=== PATIENT | female | born 2005 ===

== ENCOUNTER 2025-02-18 20:08 | Outpatient (CLI) | payer BC, SELFPAY | END 2025-02-18 20:09 | disposition home or self-care (01) | LOC: AMB 02-27 14:21 | PROVIDERS: Visit Provider Family Medicine | DX: O47.02 False labor before 37 completed weeks of gestation, second trimester (principal); Z3A.26 26 weeks gestation of pregnancy | CPT/HCPCS: A0425; A0429 ==

== ENCOUNTER 2025-02-18 20:39 | Outpatient (CLI) | payer BC, SELFPAY ==
[2025-02-18 20:46] VITALS: PULSE 86; O2SAT 98
[2025-02-18 20:51] VITALS: PULSE 72; O2SAT 99
[2025-02-18 20:54] VITALS: BP 119/67; PULSE 64
[2025-02-18 20:56] VITALS: PULSE 68; O2SAT 99
[2025-02-18] MEDS: LACTATED RINGERS 1000 ML 1,000 ML IV ×2 (21:13→22:15)
[2025-02-18 21:34] LABS: Amnisure Rom* Negative
[2025-02-18] MEDS: ACETAMINOPHEN 500 MG TABLET 1000 MG PO (21:37)
[2025-02-18 21:43] LABS: Fetal Fibronectin* Negative (Negative)
[2025-02-18 21:50] LABS: Appearance Urine Cloudy (Clear)
--- NOTE | 2025-02-18 21:51 | CRLHL7_ITS ---
For Patients: As a result of the Century Cures Act, medical imaging exams and procedure reports are released immediately into your electronic medical record. You may view this report before your referring provider. If you have questions, please contact your health care provider. Indication: Assess cervical length, pain Technique: Targeted sonographic evaluation of the cervix was performed via transvaginal sonography. Comparison: None. Findings/Impression : Gravid uterus. The cervix is closed measuring 3 cm with without fundal pressure and 2.7 cm with fundal pressure. No funneling identified. No placenta or vasa previa. Dictated by Satinder Morris MD @ 02/19/2025 12:00:17 AM (Electronically Signed)
[2025-02-18 22:01] LABS: Trichomonas No Trichomonas Seen (None Seen)
--- NOTE | 2025-02-18 22:06 | CRLHL7_ITS ---
For Patients: As a result of the Century Cures Act, medical imaging exams and procedure reports are released immediately into your electronic medical record. You may view this report before your referring provider. If you have questions, please contact your health care provider. INDICATION: Pain, evaluate kidneys. TECHNIQUE: Ultrasound renal and bladder complete. Hudson-scale and color Doppler sonographic images were acquired of the kidneys and urinary bladder. COMPARISON: None. FINDINGS: Right kidney: 11.3 x 6.6 x 6.1 cm. Left kidney: 10.3 x 5.1 x 5.1 cm. Moderate right-sided hydroureteronephrosis from the mid ureter proximally. Mild left-sided pelviectasis. No suspicious mass or stone bilaterally. Bladder: Normal in caliber and appearance. Color Doppler images demonstrate bilateral ureteral jets. Gravid uterus. IMPRESSION: 1. Moderate right-sided hydroureteronephrosis from the mid ureter proximally. 2. Mild left-sided pelviectasis. 3. Bilateral ureteral jets are visualized. Dictated by Satinder Morris MD @ 02/18/2025 11:57:52 PM (Electronically Signed)
[2025-02-18 22:25] LABS: Bacterial Vaginosis* Negative (Negative); Candida glab/krus NOT DETECTED (No Detected)
[2025-02-18 22:43] LABS: Cannabinoid Screen Urine Negative (Negative); Methamphetamines Screen Urine Negative (Negative); Tricyclic Antidepressant Urine Negative (Negative)
--- NOTE | 2025-02-18 23:41 | PC.NURSE ---
Verbal order from Alexey Andres MD: send to [facility] 5mg Oxycodone Q4-6 hours PRN pain. 20 tablets
--- NOTE | 2025-02-18 23:48 | PM.OBLDTN ---
OB - Triage/Final Diagnosis Visit Information Time Seen by Provider: 09:15 Date Seen: 02/18/25 Date of evaluation: 02/18/25 Narrative: Patient is a 19YO at 25w4d who presents to triage for evaluation of abdominal pain. Patient repots that pain started out of the blue around 5:30PM on 02/18/2025. She states that it is a constant stabbing pain that is primarily in her lower abdomen, but radiates around her abdomen and to her back, particularly on the right side. She reports that she was nauseated earlier today but this subsided. She denies dysuria, changes in frequency, urinary urgency. She denies gross hematuria. She reports that she has had increased vaginal discharge over the last few weeks, however testing at her primary OBs office was negative for vaginitis. She denies fevers, chills, diarrhea, and constipation. She cannot get comfortable in bed. She describes that this is similar to the pain that she had at the end of her last , but this is more severe. Pain is worsened by movement. She had not taken anything for pain control. This patient is new to me and does not have records in our health system. Some records were able to obtained and reviewed from [facility] - where she gets routine care. Her has been complicated by missed appointments, transportation insecurity, food insecurity, tension headaches, intermittent dizziness, chronic back pain, chronic knee pain, bipolar disorder (notes state history of manic episodes) on lamotrigine QD and seroquel 25-50mg PRN, h/o pre-eclampsia, short interval (last delivery 04/2024 vaginally, uncomplicated). Evaluation Cervical dilation (cm): 0 Cervical effacement (%): 0 Laboratory results: Laboratory Tests 02/18/25 02/18/25 02/18/25 Range/Units 21:45 21:35 21:20 Urine Color Yellow (Yellow) Urine Appearance Cloudy A (Clear) Urine pH 7.0 (5.0-8.5) Ur Specific [place] 1.025 (1.000-1.030) Urine Protein Negative (Negative) Urine Glucose (UA) Negative (Negative) Urine Ketones Negative (Negative) Urine Blood 2+ A (Negative) Urine Nitrite Negative (Negative) Urine Bilirubin Negative (Negative) Urine Urobilinogen 1.0 (0.2-1.0) Ur Leukocyte Esterase Negative (Negative) Urine RBC 2-5 A (0-2) Urine WBC 5-10 A (0-5) Ur Squamous Epith Cells Many A (None-Few) Amorphous Sediment Moderate A (None) Urine Bacteria Moderate A (None) Urine Mucus Few A (None) Membrane Rupture Vaginal Trichomonas No Trichomonas Seen (None Seen) Vaginal Yeast No Yeast Seen (None Seen) Vaginal Clue Cells <20% Clue Cells Seen A (None Seen) Vaginal Bacterial Vaginosis (Negative) Vaginal Jimena species (No Detected) Vag C. glabrata/krusei (No Detected) Vag T. vaginalis (No Detected) Urine Opiates Screen Negative (Negative) Ur Oxycodone Screen Negative (Negative) Urine Methadone Screen Negative (Negative) Ur Barbiturates Screen Negative (Negative) U Tricyclic Antidepress Negative (Negative) Ur Phencyclidine Scrn Negative (Negative) Ur Amphetamines Screen Negative (Negative) U Methamphetamines Scrn Negative (Negative) U Benzodiazepines Scrn Negative (Negative) Urine Cocaine Screen Negative (Negative) U Marijuana (THC) Screen Negative (Negative) Ur Drug Screen Comment See Note Fibronectin (Negative) 02/18/25 02/18/25 Range/Units 21:08 21:00 Urine Color (Yellow) Urine Appearance (Clear) Urine pH (5.0-8.5) Ur Specific [place] (1.000-1.030) Urine Protein (Negative) Urine Glucose (UA) (Negative) Urine Ketones (Negative) Urine Blood (Negative) Urine Nitrite (Negative) Urine Bilirubin (Negative) Urine Urobilinogen (0.2-1.0) Ur Leukocyte Esterase (Negative) Urine RBC (0-2) Urine WBC (0-5) Ur Squamous Epith Cells (None-Few) Amorphous Sediment (None) Urine Bacteria (None) Urine Mucus (None) Membrane Rupture Negative Vaginal Trichomonas (None Seen) Vaginal Yeast (None Seen) Vaginal Clue Cells (None Seen) Vaginal Bacterial Vaginosis Negative (Negative) Vaginal Jimena species NOT DETECTED (No Detected) Vag C. glabrata/krusei NOT DETECTED (No Detected) Vag T. vaginalis NOT DETECTED (No Detected) Urine Opiates Screen (Negative) Ur Oxycodone Screen (Negative) Urine Methadone Screen (Negative) Ur Barbiturates Screen (Negative) U Tricyclic Antidepress (Negative) Ur Phencyclidine Scrn (Negative) Ur Amphetamines Screen (Negative) U Methamphetamines Scrn (Negative) U Benzodiazepines Scrn (Negative) Urine Cocaine Screen (Negative) U Marijuana (THC) Screen (Negative) Ur Drug Screen Comment Fibronectin Negative (Negative) Vital signs: Vital Signs - 24 hr 02/18/25 20:46 02/18/25 20:51 02/18/25 20:54 Pulse Rate 64 Blood Pressure 119/67 Pulse Oximetry 98 99 02/18/25 20:56 Pulse Rate Blood Pressure Pulse Oximetry 99 Comments: She appears uncomfortable and intermittently writhing around in pain on exam. She is swearing intermittently throughout the history and exam due to the severity of the pain. She is warm and well perfused. Her mucus membranes are moist. Her breathing is unlabored. Her abdomen is gravid, but soft. She had tenderness diffusely, but is most severe in the suprapubic area. She does not have CVA tenderness. She has bilateral paraspinal muscle spasms of her lumbar spine, these are mildly tender. She has significant tenderness with palpation of right SI joint, she otherwise has no bony tenderness. She is non-edematous. Her gait is normal. Her affect fluctuates throughout exam. She is tangential in her thought process, but can be re-directed. She cooperates during my exam, however bedside RN states that her needed to answer majority of the rooming questions due to lack of cooperation by the patient. She does not appear to ?be having visual or auditory hallucinations. Fetus (Single) Heart Rate Baseline: 130 Custodial Variability: Moderate (6-25) Monitor Accelerations: Present Monitor Decelerations: Variable Final Diagnosis (1) Renal colic on right side: Status: Acute Problem details: Suspect etiology of sudden onset abdominal pain is due to renal stone given blood/RBC in urine and hydronephrosis on imaging. Thankfully, ureteral jets were present bilateral so low suspicion for obstructing stone. Renal US: IMPRESSION: 1. Moderate right-sided hydroureteronephrosis from the mid ureter proximally. 2. Mild left-sided pelviectasis. 3. Bilateral ureteral jets are visualized. Patient given 2L bolus in triage. Given tylenol, morphine, and vistaril for pain control which was helpful. Will discharge patient with #20tabs of oxycodone 5mg Q4-6H PRN for pain. Can also take 1000mg tylenol Q6H PRN for pain. Encouraged vigorous oral hydration. Recommended follow up with primary OB in 1-5 days. Consider urology referral in outpatient setting. Initial concern for labor, however no contractions on the monitor, FFM negative, amnisure negative, cervix close, cervical length of ~3cm on ultrasound. Considered vaginitis as cause for cramping, however negative wet prep. (2) : Status: Acute (3) Sacroiliac joint pain: Status: Acute Problem details: SI joint pain on exam, likely related to back pain in . Patient already participating in PT.
--- NOTE | 2025-02-19 00:28 | PC.OBNST ---
NST Note NST Note Start: 02/18/25 20:41 Freq: ONCE Status: Active Protocol: Document 02/19/25 00:26 NIMESH (Rec: 02/19/25 00:28 NIMESH Desktop) NST Note 2 Para (# of births) 1 EDC 05/30/25 Gestational Age In 25 Weeks & 5 Days Weeks & Days Patient Presented Pain with Complaint(s) of Other Complaints patient complaining of pelvic pain, pressure, RUQ pain- came in via EMS lights and sirens Reactive Yes Appropriate for Yes Gestational Age MARK Barr RN Date 02/19/25 Reactive Yes Appropriate for Yes Gestational Age MARK Andujar Date 02/19/25 OB NST charge Yes Complete NST Note Yes via Write Note The provider's electronic signature indicates the NST is reactive/appropriate for gestational age. *Note to provider: If an addendum is required, open the patient's chart and click on the note under the Nurse/Allied Health tab.
== END 2025-02-18 23:55 | disposition home or self-care (01) ==
LOC: OB OUT 20:40 → OB 20:42
PROVIDERS: Visit Provider Student in an Organized Health Care Education/Training Program
DX: O26.892 Other specified pregnancy related conditions, second trimester (principal); R10.20 Pelvic and perineal pain unspecified side; R10.11 Right upper quadrant pain; Z3A.25 25 weeks gestation of pregnancy
CPT/HCPCS: 59025; 76770; 76817; 80306; 81001; 81003; 81513; 84112; 87086; 87210; 87481; 87661; G0463; A9270; J2270; J7120